=== PATIENT | male | born 1950 | race American Indian/Alaskan Native ===

== ENCOUNTER 2016-11-04 05:37 | Emergency (ER) | payer OTHER ==
[2016-11-04 05:48] VITALS: TEMP 97.9
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
[2016-11-04 06:11] VITALS: PULSE 103; RESP 16; O2SAT 97
[2016-11-04 06:30] VITALS: BP 142/90
== END 2016-11-04 06:54 | disposition home or self-care (01) ==
LOC: C.ER 05:37
DX: S70.12XA Contusion of left thigh, initial encounter (principal); V89.2XXA Person injured in unspecified motor-vehicle accident, traffic, initial encounter
CPT/HCPCS: 96372; 99284; J1885